=== PATIENT | female | born 1940 | race Caucasian/White ===

== ENCOUNTER 2017-05-23 13:25 | Emergency (ER) | payer OTHER, BC ==
[~2017-05-23] VITALS: Ht 165.1 cm; Wt 93.6 kg
[2017-05-23 14:28] LABS: POINT-OF-CARE METER ID UU13113778
[2017-05-23] MEDS ORDERED: NORCO 5/3251 TABLET PO (17:11)
[2017-05-23 17:42] VITALS: BP 120/74
== END 2017-05-23 17:44 | disposition home or self-care (01) ==
LOC: EME 13:25
PROC: 2W38X1Z Immobilization of Right Upper Extremity using Splint (ICD-10-PCS; principal; 2017-05-23)
DX: S52.501A Unspecified fracture of the lower end of right radius, initial encounter for closed fracture (principal); W01.0XXA Fall on same level from slipping, tripping and stumbling without subsequent striking against object, initial encounter; Y92.002 Bathroom of unspecified non-institutional (private) residence as the place of occurrence of the external cause; E11.9 Type 2 diabetes mellitus without complications; Z85.3 Personal history of malignant neoplasm of breast; Z90.10 Acquired absence of unspecified breast and nipple; Z88.0 Allergy status to penicillin; Z88.6 Allergy status to analgesic agent
CPT/HCPCS: 73090; 73110; 82948; 99281; 99284

== ENCOUNTER 2017-07-05 10:42 | Inpatient (IN) | payer OTHER, BC ==
[~2017-07-05] VITALS: Ht 165.1 cm; Wt 87.1 kg
[~2017-07-05 10:42] MED LIST: NORCO 5/3251 TABLET PO
[2017-07-05 11:38] LABS: BASOPHIL (%) 0.5 % (0-1); EOSINOPHIL (%) 2.7 % (0-5); EOSINOPHIL COUNT 0.2 K/uL (0-0.3); HEMATOCRIT 42.6 % (36.0-46.0); HEMOGLOBIN 14.4 G/DL (11.9-15.5); IMMATURE GRANULOCYTE (%) 0.4 % (0.0-0.7); LYMPHOCYTE (%) 18.1 % (15-42); LYMPHOCYTE COUNT 1.4 K/uL (1.0-2.8); MCH 31.5 PG (29.0-34.0); MCHC 33.8 G/DL (30.0-36.0); MCV 93.2 FL (83-99); MONOCYTE (%) 9.5 % (3-12); MONOCYTE COUNT 0.8 K/uL (0-0.8); NEUTROPHIL (%) 68.8 % (45-76); NEUTROPHIL COUNT 5.5 K/uL (1.8-6.4); PLATELET COUNT 241 K/uL (156-360); RBC DIS.WIDTH-SD 44.3 % (39-53); RED BLOOD COUNT 4.57 M/uL (3.80-5.20); WHITE BLOOD COUNT 7.9 K/uL (4.1-10.2)
[2017-07-05 11:45] LABS: D-DIMER ELISA < 150.00 ng/mLDDU (<230)
[2017-07-05 11:46] LABS: PTT 24.8 SEC (25-37)
[2017-07-05 11:48] LABS: CHLORIDE 106 mEq/L (99-109); SODIUM 139 mEq/L (136-147)
[2017-07-05 11:50] LABS: GLUCOSE 136 mg/dL (70-99)
[2017-07-05 11:53] LABS: GFR ESTIMATE (CALCULATED) 57 mL/min/
[2017-07-05 11:54] LABS: UREA NITROGEN (BUN) 20 mg/dL (9-23)
[2017-07-05 11:58] LABS: TROP-I INTERPRETATION NEGATIVE; TROPONIN-I < 0.01 ng/mL (0.0-0.30)
[2017-07-05] MEDS ORDERED: VALSARTAN320 MG PO (14:55)
[2017-07-05] MEDS ORDERED: WELCHOL625 MG PO (14:55)
[2017-07-05] MEDS ORDERED: METOPROLOL SUC100 MG PO (14:55)
[2017-07-05] MEDS ORDERED: ATORVASTATIN CA20 MG PO (14:56)
[2017-07-05] MEDS ORDERED: MONTELUKAST SOD10 MG PO (14:56)
[2017-07-05] MEDS ORDERED: GLIMEPIRIDE2 MG PO (14:57)
[2017-07-05] MEDS ORDERED: ZYRTEC10 M3 PO (14:57)
[2017-07-05] MEDS ORDERED: LORAZEPAM0.5 MG PO (14:57)
[2017-07-05] MEDS ORDERED: CENTRUM SILVER1 EAC3 PO (14:58)
[2017-07-05] MEDS ORDERED: CALCIUM 500 MG1 EACH PO (14:59)
[2017-07-05 16:26] VITALS: BP 166/86
[2017-07-05 18:13] LABS: TROP-I INTERPRETATION NEGATIVE; TROPONIN-I < 0.01 ng/mL (0.0-0.30)
[2017-07-05 19:32] VITALS: BP 147/84
[2017-07-05 23:45] VITALS: BP 126/58
[2017-07-06] VITALS (8 sets, daily range): BP systolic 103–181; BP diastolic 62–86
[2017-07-06 00:59] LABS: TROP-I INTERPRETATION NEGATIVE; TROPONIN-I < 0.01 ng/mL (0.0-0.30)
[2017-07-06] MEDS ORDERED: AMLODIPINE BESYL5 MG PO (13:50)
[2017-07-07 03:41] VITALS: BP 143/78
[2017-07-07 06:26] LABS: BASOPHIL COUNT 0.1 K/uL (0-0.1); EOSINOPHIL (%) 5.2 % (0-5); EOSINOPHIL COUNT 0.3 K/uL (0-0.3); HEMATOCRIT 39.9 % (36.0-46.0); HEMOGLOBIN 13.3 G/DL (11.9-15.5); IMMATURE GRANULOCYTE (%) 0.2 % (0.0-0.7); LYMPHOCYTE (%) 30.7 % (15-42); LYMPHOCYTE COUNT 1.6 K/uL (1.0-2.8); MCH 30.7 PG (29.0-34.0); MCHC 33.3 G/DL (30.0-36.0); MCV 92.1 FL (83-99); MONOCYTE (%) 11.1 % (3-12); MONOCYTE COUNT 0.6 K/uL (0-0.8); NEUTROPHIL (%) 51.8 % (45-76); NEUTROPHIL COUNT 2.7 K/uL (1.8-6.4); PLATELET COUNT 267 K/uL (156-360); RBC DIS.WIDTH-CV 13.1 % (11.8-14.6); RBC DIS.WIDTH-SD 44.1 % (39-53); RED BLOOD COUNT 4.33 M/uL (3.80-5.20); WHITE BLOOD COUNT 5.2 K/uL (4.1-10.2)
[2017-07-07 07:13] VITALS: BP 156/75
[2017-07-07] MEDS ORDERED: CLONIDINE HCL0.1 MG PO (09:49)
== END 2017-07-07 10:50 | disposition home or self-care (01) | DRG 305 ==
LOC: EME 10:42 → 5WEST 12:43 → EDOF 12:43 → ENRESERV 12:47 → 5WEST 16:12
PROVIDERS: Emergency Medicine; Internal Medicine; Physician Assistant
DX: I10 Essential (primary) hypertension (principal); R55 Syncope and collapse; R00.0 Tachycardia, unspecified; E11.9 Type 2 diabetes mellitus without complications; Z85.3 Personal history of malignant neoplasm of breast; Z79.84 Long term (current) use of oral hypoglycemic drugs
CPT/HCPCS: 70450; 71045; 80048; 82948; 84484; 85025; 85379; 85610; 85730; 93005; 93306; 93880; 99281; 99285; G0378; J0360; J1650; J7030

== ENCOUNTER 2017-07-12 11:42 | Emergency (ER) | payer OTHER, BC ==
[~2017-07-12] VITALS: Ht 165.1 cm; Wt 94.9 kg
[~2017-07-12 11:42] MED LIST changes: +AMLODIPINE BESYL5 MG PO; +ATORVASTATIN CA20 MG PO; +CALCIUM 500 MG1 EACH PO; +CENTRUM SILVER1 EAC3 PO; +CLONIDINE HCL0.1 MG PO; +GLIMEPIRIDE2 MG PO; +LORAZEPAM0.5 MG PO; +METOPROLOL SUC100 MG PO; +MONTELUKAST SOD10 MG PO; +VALSARTAN320 MG PO; +WELCHOL625 MG PO; +ZYRTEC10 M3 PO
[2017-07-12 12:34] LABS: BASOPHIL (%) 0.4 % (0-1); EOSINOPHIL (%) 2.8 % (0-5); EOSINOPHIL COUNT 0.2 K/uL (0-0.3); HEMATOCRIT 42.5 % (36.0-46.0); HEMOGLOBIN 14.5 G/DL (11.9-15.5); IMMATURE GRANULOCYTE (%) 0.3 % (0.0-0.7); LYMPHOCYTE (%) 19.2 % (15-42); LYMPHOCYTE COUNT 1.4 K/uL (1.0-2.8); MCH 31.5 PG (29.0-34.0); MCHC 34.1 G/DL (30.0-36.0); MCV 92.4 FL (83-99); MONOCYTE (%) 9.1 % (3-12); MONOCYTE COUNT 0.7 K/uL (0-0.8); NEUTROPHIL (%) 68.2 % (45-76); PLATELET COUNT 275 K/uL (156-360); RBC DIS.WIDTH-CV 13.1 % (11.8-14.6); RBC DIS.WIDTH-SD 44.1 % (39-53); WHITE BLOOD COUNT 7.4 K/uL (4.1-10.2)
[2017-07-12 12:48] LABS: CHLORIDE 105 mEq/L (99-109); POTASSIUM 4.1 mEq/L (3.7-5.4); SODIUM 139 mEq/L (136-147)
[2017-07-12 12:50] LABS: GLUCOSE 124 mg/dL (70-99)
[2017-07-12 12:54] LABS: CREATININE 1.2 mg/dL (0.6-1.3); GFR ESTIMATE (CALCULATED) 47 mL/min/
[2017-07-12 12:55] LABS: UREA NITROGEN (BUN) 19 mg/dL (9-23)
[2017-07-12] MEDS ORDERED: ANTIVERT25 MG PO (15:44)
[2017-07-12 16:45] VITALS: BP 136/90
== END 2017-07-12 16:47 | disposition home or self-care (01) ==
LOC: EME 11:42
PROVIDERS: Emergency Medicine
DX: R42 Dizziness and giddiness (principal); E86.0 Dehydration; R11.0 Nausea; I10 Essential (primary) hypertension; E11.9 Type 2 diabetes mellitus without complications; Z79.84 Long term (current) use of oral hypoglycemic drugs; Z85.3 Personal history of malignant neoplasm of breast; Z90.10 Acquired absence of unspecified breast and nipple
CPT/HCPCS: 80048; 85025; 93005; J7030